=== PATIENT | male | born 1950 | race Caucasian/White ===

== ENCOUNTER 2018-08-23 13:25 | Outpatient (CLI) | payer OTHER ==
--- NOTE | 2018-08-23 14:17 | CT ---
CT OF THE LEFT HIP: Date: 08-23-18 Provided Clinical History: Left hip pain. FINDINGS: There is no evidence for fracture or other acute osseous abnormality. There is conspicuous osteophyte formation about the left hip joint with borderline acetabular over coverage. There is mild concentri c left hip joint space narrowing. There is left hip joint effusion. Vascular calcifications are noted. Alignment appears anatomic. No lytic or blastic lesions are seen. The regional soft tissues demonstrate an unremarkable unenhanced CT appearance otherwise. IMPRESSION: Degenerative arthrosis of the left hip with associated left hip joint effusion. POS: C
--- NOTE | 2018-08-23 14:42 | RAD ---
THREE VIEWS LUMBAR SPINE WITH NEUTRAL AND FLEXION AND EXTENSION VIEWS PROVIDED: DATE: 08/23/2018. HISTORY: Lower back pain and pain in pelvis. Acute lumbar radiculopathy. Left leg pain for many years. FINDINGS: Multilevel osteophytes are seen throughout the visualized lower thoracic as well as involving the lum bar spine predominantly anteriorly. There is narrowing of the intervertebral disk spaces at all leve ls of the lumbar spine. The vertebral body heights do appear to be within normal limits and there is no obvious fracture or subluxation seen on the provided lateral images. Vascular calcifications are present within the abdominal aorta. IMPRESSION: Multilevel degenerative changes. There is no subluxation seen involving the lumbar spine. POS: [facility]
--- NOTE | 2018-08-23 14:52 | CT ---
CT LUMBAR SPINE WITHOUT CONTRAST: HISTORY: Acute lumbar radiculopathy. Low back pain and pain in the pelvis. Left leg pain x many years. COMPARISON: None. FINDINGS: Retroperitoneal structures are unremarkable. There is atherosclerosis of a nonaneurysmal aorta. Sym metric attenuation of psoas muscles. Visualized solid organs are also unremarkable. Lumbar spine vertebral body height is maintained. There is no evidence of a lumbar spine fracture. There is no spondylolisthesis or spondylolysis. There are 5 lumbar-type vertebral bodies. Vacuum di sk phenomenon at L4-L5 and L5-S1. Limited evaluation of the contents of the central spinal canal and neural foramen due to technique. T11-T12 and T12-L1: No significant central canal stenosis. Neural foramen are patent. L1-L2: Generalized disk bulge. Mild central canal stenosis. Moderate bilateral foraminal narrowing . L2-L3: Generalized disk bulge. Mild central canal stenosis. Mild to moderate bilateral neural fora anmol narrowing. L3-L4: Generalized disk bulge, ligamentum flavum thickening, and facet hypertrophy result in mild to moderate central canal stenosis. Mild to moderate bilateral neural foraminal narrowing. L4-L5: Vacuum disk phenomenon. Broad-based disk bulge, ligamentum flavum thickening, and facet hype rtrophy result in moderate central canal stenosis. Severe right and severe left neural foraminal lucien rowing. L5-S1: Generalized disk bulge with a central disk protrusion. No significant central canal stenosis . Moderate right and left foraminal narrowing. IMPRESSION: Degenerative changes of the lumbar spine as above. POS: [facility]
== END 2018-08-23 13:26 | disposition home or self-care (01) ==
LOC: TBSIIMAG 13:25
PROVIDERS: ATTEND Neurological Surgery
DX: M47.26 Other spondylosis with radiculopathy, lumbar region (principal); M25.552 Pain in left hip; M16.12 Unilateral primary osteoarthritis, left hip; M25.462 Effusion, left knee
CPT/HCPCS: 72100; 72131